=== PATIENT | female | born 1950 | race Caucasian/White ===

== ENCOUNTER → 2017-01-15 | Outpatient (CLI) | payer MEDICARE ==
[~2017-01-15] MED LIST: ASPIRIN325 M1 PO; CALCIUM 500 + D1 TA2 PO; PRAVASTATIN 20M20 MG PO
--- NOTE | 2017-01-17 19:45 | RADIOLOGY REPORT PS360 ---
DEXA SCAN.-BONE DENSITY STUDY HIPS AND LUMBAR SPINE HISTORY: Postmenopausal female previous fractures. 66-year-old female. Family history osteoporosis. Takes vitamin D and calcium. TECHNIQUE: DEXA scan hip and lumbar spine The most complete data summary and color graphic presentation of the today's ( and any prior ) DEXA findings are available in PACS. Definition and treatment guidelines included. COMPARISON: None listed July 2014 LUMBAR SPINE: Osteopenia L2 vertebral body demonstrates the lowest T score -2.9 with BMD0.854 g/cm sq Overall mean lumbar L1-L4 T score -2.1 with BMD0.924 g/cm sq . 2015 prior DEXA the mean T score -2.1, 0.926 with BMD was0.926g/cm sq Thus when comparing today's study to the prior exam there's been a 0.2% decrease mean bone density at the lumbar spine. Which is less than expected over this length of time HIPS: Femoral neck density is best predictor of hip fracture risk . Right Femoral neck demonstrates the lowest T score -2.4 with BMD0.698 g/cm sq . Left femoral neck T score interval 0.8 with BMD 0.78 Averaging all regions Today's mean Hip Mean T score -1.5 with BMD0.822 g/cm sq . 2015 overall mean hip T score -1.6 with mean BMD0.8 g/cm sq Thus this reflects a 2.8% increasein overall mean bone density at the hips in the interval. IMPRESSION 1. LUMBAR SPINE: Osteopenia with overall T score -2.4. Lowest T score L2 vertebral body with T score -2.9 2. HIPS:. Osteopenia overall T score = -1.5 Right femoral neck T score -2.4 WHO criteria for post-menopausal, Women: Normal: T-score at or above -1 SD Osteopenia: T-score between -1 and -2.5 SD Osteoporosis: T-score at or below -2.5 SD
--- NOTE | 2017-01-18 13:29 | RADIOLOGY REPORT PS360 ---
DIG MAMM-SCREEN CRESCENCIO W/CAD CAD Screening COMPARISON: Digital mammograms 09/22/2015 and 07/21/2014 INDICATION: There is a history of breast cancer in the patient's paternal aunt and maternal aunt. TECHNIQUE: Standard CC and MLO images were obtained. R2 CAD reviewed. FINDINGS: Scattered diffuse fiber glandular densities are seen in the central portions of both breast. There are few benign-appearing calcination each breast. There is faint arterial calcification noted bilaterally. There is a stable tiny benign-appearing nodular density outer quadrant left breast. There is no suspicious lesion and there are no suspicious microcalcifications. IMPRESSION: Stable exam no suspicious lesion seen recommend yearly follow-up BI-RADS CATEGORY: 2_Benign RECOMMENDED FOLLOWUP: 12M 12 MONTH FOLLOW-UP (A letter has been sent to the patient regarding results of the study.)
== END ==
LOC: RAD 08:38
DX: Z12.31 Encounter for screening mammogram for malignant neoplasm of breast (principal); Z13.820 Encounter for screening for osteoporosis; M81.0 Age-related osteoporosis without current pathological fracture
CPT/HCPCS: G0202